=== PATIENT | female | born 1950 | race Caucasian/White ===

== ENCOUNTER → 2016-07-25 | Outpatient (CLI) | payer OTHER ==
[~2016-07-25] MED LIST: ASPIRIN 81M81 MG/TA2 PO
== END ==
LOC: MC.RAD 11:36
DX: Z12.31 Encounter for screening mammogram for malignant neoplasm of breast (principal)

== ENCOUNTER → 2017-02-01 | Outpatient (REF) | LOC: WSOH 17:15 | DX: Z02.89 Encounter for other administrative examinations (principal) ==

== ENCOUNTER → 2017-08-10 | Outpatient (CLI) | payer MEDICARE, OTHER | LOC: MC.RAD 10:30 | DX: N63.11 Unspecified lump in the right breast, upper outer quadrant (principal) ==

== ENCOUNTER → 2018-11-14 | Outpatient (CLI) | payer MEDICARE, OTHER | LOC: MC.RAD 16:14 | DX: Z12.31 Encounter for screening mammogram for malignant neoplasm of breast (principal) ==

== ENCOUNTER → 2020-01-15 | Outpatient (CLI) | payer MEDICARE, OTHER | LOC: MC.RAD 08:59 | DX: Z12.31 Encounter for screening mammogram for malignant neoplasm of breast (principal) ==

== ENCOUNTER → 2022-03-28 | Outpatient (CLI) | payer MEDICARE, OTHER | LOC: MC.RAD 09:10 | DX: Z12.31 Encounter for screening mammogram for malignant neoplasm of breast (principal) ==

== ENCOUNTER → 2023-06-27 | Outpatient (CLI) | payer MEDICARE, OTHER | LOC: MC.RAD 06:56 | DX: N64.89 Other specified disorders of breast (principal) ==